=== PATIENT | female | born 1985 | race Caucasian/White ===

== ENCOUNTER 2018-02-26 23:13 | Emergency (ER) | END 2018-02-27 03:48 | disposition home or self-care (01) ==

== ENCOUNTER 2018-03-02 12:31 | Emergency (ER) | END 2018-03-02 14:32 | disposition home or self-care (01) ==

== ENCOUNTER 2019-02-09 19:21 | Emergency (ER) | payer SELFPAY ==
[~2019-02-09] VITALS: Ht 149.9 cm; Wt 72.2 kg
[~2019-02-09 19:21] MED LIST: ACET500C5 PO; CEPH-443 PO; METO10TA92 PO; PREN-93 PO
[2019-02-09 19:27] VITALS: BP 133/85; PULSE 92; RESP 23; Ht 149.9 cm; Wt 72.2 kg
[2019-02-09] MEDS ORDERED: ACETAMINOPHEN 500 MG TAB PO STA (21:01)
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
[2019-02-09] MEDS ORDERED: ACET325T33 PO (22:43)
== END 2019-02-09 22:54 | disposition home or self-care (01) ==
LOC: FTE 19:21
DX: O26.892 Other specified pregnancy related conditions, second trimester (principal); R10.9 Unspecified abdominal pain; V69.50XA Passenger in heavy transport vehicle injured in collision with unspecified motor vehicles in traffic accident, initial encounter; Z3A.17 17 weeks gestation of pregnancy
CPT/HCPCS: 76805